=== PATIENT | male | born 1975 | race Two or more races ===

== ENCOUNTER 2025-05-05 10:28 | Emergency (ER) | payer OTHER ==
[~2025-05-05] VITALS: Ht 180.3 cm; Wt 64.0 kg
[2025-05-05 11:11] LABS: BASOPHILS % 0.2 % (0.0-2.0); EOSINOPHILS % 2.5 % (0.0-5.0); HEMATOCRIT. 43.9 % (42.0-52.0); HEMOGLOBIN. 14.8 g/dL (14.0-18.0); LYMPHOCYTES % 19.6 % (20.0-50.0); MEAN PLATELET VOLUME 8.3 fl (7.4-10.4); MONOCYTES % 5.8 % (2.0-8.0); NEUTROPHILS % 71.9 % (40.0-76.0); PLATELET 214 x1000/uL (130-400); RED BLOOD CELL COUNT 4.83 mill/uL (4.7-6.1); RED CELL DISTRIBUTION WIDTH 13.3 % (11.6-14.6)
[2025-05-05] MEDS: MORPHINE SULFATE 4 MG/ML INJ (FOR IV/IM USE) IM NR (11:14)
[2025-05-05] MEDS ORDERED: PROPOFOL 200MG/20ML VIAL IV PRN (11:15)
[2025-05-05 11:22] LABS: CREATININE 1.0 mg/dL (0.6-1.3)
[2025-05-05 11:23] LABS: UREA NITROGEN BLOOD 17 mg/dL (9-23)
[2025-05-05 11:27] VITALS: O2SAT 97
[2025-05-05] MEDS: PROPOFOL 200MG/20ML VIAL IV ONE (11:54)
[2025-05-05] MEDS: KETAMINE HCL 50 MG/ML 10ML IV ONE (11:55)
[2025-05-05] MEDS ORDERED: TOPUD PO (12:05)
[2025-05-05 13:00] VITALS: BP 116/85; PULSE 81; RESP 16; TEMP 36.4; O2SAT 99
== END 2025-05-05 13:04 | disposition home or self-care (01) ==
LOC: ER 10:28
DX: S43.005A Unspecified dislocation of left shoulder joint, initial encounter (principal); I49.9 Cardiac arrhythmia, unspecified; X50.9XXA Other and unspecified overexertion or strenuous movements or postures, initial encounter; Y93.89 Activity, other specified; Y92.89 Other specified places as the place of occurrence of the external cause; Y99.8 Other external cause status
CPT/HCPCS: 99285; 23650; 80048; 85025; 36415; 73030; 99152; 73020; 93005; 96372; J3490; J2704; J2270